=== PATIENT | female | born 1950 | race Caucasian/White ===

== ENCOUNTER 2019-12-27 21:53 | Inpatient (IN) ==
[2019-12-27] MEDS ORDERED: DUONEB (A & A) ONE (21:58)
[2019-12-27] MEDS ORDERED: DUONEB (A & A) INH ONE (22:06)
--- NOTE | 2019-12-27 22:13 | PROVIDER DOCUMENTATION ---
HPI-General Adult - General Chief Complaint: Nausea/Vomiting Stated Complaint: N/V Time Seen by Provider: 12/27/19 22:00 Source: patient Allergies/Adverse Reactions: Patient Allergies Allergy/AdvReac Type Severity Reaction Status Date / Time codeine [Codeine] Allergy Severe NAUSEA/VOMI Verified 05/20/17 12:57 TING meperidine HCl * Allergy Severe NAUSEA/VOMI Verified 05/20/17 12:57 [From Demerol] TING morphine Allergy Severe NAUSEA/VOMI Verified 05/20/17 12:57 TING oxycodone [Oxycodone] Allergy Severe NAUSEA/VOMI Verified 05/20/17 12:57 TING Home Medications: Home Medication List Medication Instructions Recorded Confirmed Last Taken Type Enalapril Maleate 10 mg PO BID 02/04/13 05/21/17 05/20/17 08:00 History Levetiracetam [Keppra] 750 mg PO BID 02/04/13 05/21/17 05/20/17 09:00 History Potassium Chloride [Klor-Con 10] 10 meq PO BID 02/04/13 05/21/17 05/19/17 History ROSUVAstatin [Crestor] 20 mg PO HS 02/04/13 05/21/17 05/19/17 History Atenolol [Tenormin] 25 mg PO DAILY 01/20/14 05/21/17 02/26/15 10:00 History Pantoprazole Sodium [Protonix] 40 mg PO DAILY 01/20/14 05/21/17 05/19/17 History Fluticasone 50 Mcg Nasal [place] 1 spray REGGIE DAILY 05/20/17 05/21/17 Unknown History [Flonase] Magnesium 400 mg PO DAILY 05/20/17 05/21/17 Unknown History Metformin HCl 1,000 mg PO BID 05/20/17 05/21/17 Unknown History Nisoldipine 17 mg PO DAILY 05/20/17 05/21/17 Unknown History Buspirone HCl 7.5 mg PO TID 05/21/17 05/21/17 Unknown History - History of Present Illness -Gen Adult Nature of Presenting Problems: 69 YOF WITH PMH OF SIEZURES, DM, HTN, HLD PRESENTS WITH C/O N/V X 2 DAYS. UPON EMS ARRIVAL IT WAS NOTED THAT HER SATS WERE 82 % ON ROOM AIR. SHE WAS PLACED ON 6 L VIA N/C AND HAS INCREASED TO 94% ON ARRIVAL. SHE ALSO NOTES A COUGH WITH GREEN SPUTUM THAT BEGAN ABOUT 9PM. SHE DENIES FEVERS. REPORTS GENERALIZED BODY ACHES. Location of Pain/Injury: reports: generalized Pain Radiation: reports: no radiation Quality of Pain: reports: aching Severity: reports: moderate Onset/Duration: reports: this afternoon Timing: reports: still present Context/Activities at Onset: reports: none Modifying Factors: improves with: nothing Associated Symptoms: reports: cough, muscle aches, nausea, shortness of breath, vomiting Similar Symptoms Previously?: No Recently seen or treated by another doctor?: No Review of Systems - Adult - REVIEW OF SYSTEMS - ADULT Constitutional: reports: see HPI. denies: no symptoms reported, chills, fever, fatique, night sweats, weight gain, weight loss, other Eyes: reports: no symptoms reported. denies: see HPI, discharge, dry eyes, decreased vision, blurred vision, double vision, eye pain, redness, other Ears, Nose, Mouth & Throat: reports: no symptoms reported. denies: see HPI, ear discharge, ear pain, hearing loss, tinnitus, epistaxis, sinus problem, nose pain, loose teeth, mouth/dental pain, mouth swelling, hoarseness, throat pain, throat swelling, other Cardiovascular: reports: no symptoms reported. denies: see HPI, chest pain, edema, heart murmur, irregular heart rate, orthopnea, palpitations, poor circulation, PND, syncope, other Respiratory: reports: see HPI, cough, shortness of breath. denies: no symptoms reported, chronic cough, dyspnea on exertion, excessive sputum production, hemoptysis, pleurisy, wheezing, other Gastrointestinal: reports: see HPI, nausea, vomiting. denies: no symptoms reported, abdominal pain, hematemesis, constipation, diarrhea, difficulty swallowing, frequent heartburn, poor appetite, rectal bleeding, other Genitourinary: reports: no symptoms reported. denies: see HPI, dysuria, discharge, frequency, flank pain, frequent UTI's, hematuria, hesitency, incontinence, urinary retention, urgency, other Musculoskeletal: reports: no symptoms reported. denies: see HPI, bone pain, back pain, frequent leg cramps, joint pain, joint swelling, muscle aches, muscle weakness, neck pain, other Integumentary: reports: no symptoms reported. denies: see HPI, hives, hair loss, itching, mole changes, nail changes, rash, skin sores/ulcer, skin thickening, other Neurological: reports: no symptoms reported. denies: see HPI, ataxia, diz ziness/vertigo, headache/migraines, loss of balance, numbness, paresthesia, seizure, slurred speech, syncope, tremors, other Psychiatric: reports: no symptoms reported. denies: see HPI, anxiety, anti- depressant use, alcohol/drug dependence, depression, emotional problems, i nsomnia, panic attacks, suicidal thoughts, other Endocrine: reports: no symptoms reported. denies: see HPI, change in skin pigment, excessive sweating, goiter, cold intolerance, heat intolerance, increased hunger, increased thirst, polyuria, other Hematologic/Lymphatic: reports: no symptoms reported. denies: see HPI, blood clots, easy bruising, low blood count, lymphedema, prolonged bleeding, swollen lymph nodes, transfusions, other Allergic/Immunologic: reports: no symptoms reported. denies: see HPI, allergic reactions, allergic rhinitis, asthma, eczema, food allergy, frequent infections, hay fever, hives, positive PPD, urticaria, other Past History - Adult - PAST MEDICAL HISTORY-ADULT Review of Records: reports: Nursing Assessment Review, Social history reviewed & non-contributory. Major Childhood Illnesses: reports: denies history Cardiovascular: reports: CAD, HTN, heart valve problem (MVP), hyperlipidemia, CO Respiratory: reports: asthma Gastrointestinal: reports: GERD Obstetrical/Gynecological: reports: denies history Genitourinary: reports: denies history Musculoskeletal: reports: denies history Neurological: reports: dementia, Seizures/Epilepsy Psychiatric: reports: anxiety, depression Endocrine/Immune: reports: Diabetes Other Conditions: reports: MRSA - PRIOR SURGERIES/PROCEDURES Surgical/Procedure History: reports: cholecystectomy, hysterectomy, tonsillectomy, orthopedic (extremity), joint replacement (total knee) - IMMUNIZATION STATUS Childhood Immunizations: UTD Flu Vaccine: See Nurse Assessment - FAMILY HISTORY Family History: reviewed, not pertinent Physical Exam-General - PHYSICAL EXAM-ADULT Initial Vital Signs Reviewed: Yes - CONSTITUTIONAL General Appearance: alert, moderate distress - EYES Eyes: PERRL/EOMI, pink conjunctivae - HEAD, EARS, NOSE, MOUTH & THROAT HENMT: normal ENT inspection - NECK Neck: non-tender, full range of motion, supple - RESPIRATORY Respiratory: chest non-tender, no pleuratic chest pain, respiratory distress (MILD), crackles - CARDIOVASCULAR Cardiovascular: normal peripheral pulses, no edema, no gallop, no JVD, no murmur . negative: regular rate, rhythm (TACHY 101) - GASTROINTESTINAL (ABDOMEN) Abdominal Exam: normal bowel sounds, non tender, soft - LYMPHATIC Lymphatic: no adenopathy - MUSCULOSKELETAL Back Exam: normal inspection, no CVA tenderness, no vertebral tenderness Extremity: normal range of motion, non-tender Peripheral Pulses: radial (R): 2+, radial (L): 2+ - SKIN Integumentary: normal color, normal turgor, warm/dry - NEUROLOGIC Neurologic: grossly normal - PSYCHIATRIC Psych/Mental Status: normal mood/affect, oriented x 3 Progress - PLAN OF CARE/RESULTS Progress/Plan/Lab Results: Vital Signs - 8 hr 12/27/19 21:53 Temperature 98.9 F Pulse Rate 101 H Respiratory Rate 26 H Blood Pressure 169/100 O2 Sat by Pulse Oximetry 85 L Orders Category Date Time Status Cardiac Monitoring DIRECTED Care 12/27/19 21:56 Active IV Insertion ORDERED Care 12/27/19 21:56 Active Notify MD of + Sepsis Screen NOW Care 12/27/19 21:56 Active Notify Physician As Ordered Care 12/27/19 21:56 Active CHEST-1 VIEW [RAD] Stat Exams 12/27/19 21:56 Ordered ABG [RESP] Routine Lab 12/27/19 21:57 Ordered BLOOD CULTURE [BLDCUL] Stat Lab 12/27/19 21:56 Uncollected CBC WITH DIFF [HEME] Stat Lab 12/27/19 21:56 Uncollected CK PROFILE [SP CHEM] Stat Lab 12/27/19 21:56 Uncollected COMPREHENSIVE METABOLIC PANEL [CHEM] Stat Lab 12/27/19 21:56 Uncollected LACTATE, PLASMA [CHEM] Q3H Lab 12/27/19 22:00 Uncollected LACTATE, PLASMA [CHEM] Q3H Lab 12/28/19 01:00 Uncollected LACTATE, PLASMA [CHEM] Q3H Lab 12/28/19 04:00 Uncollected MAGNESIUM [CHEM] Stat Lab 12/27/19 21:57 Uncollected PRO B-NATRIURETIC PEPTIDE Stat Lab 12/27/19 21:57 Uncollected PROTIME WITH INR [COAG] Stat Lab 12/27/19 21:56 Uncollected PTT [COAG] Stat Lab 12/27/19 21:56 Uncollected SPUTUM CULTURE WITH GRAM STAIN [RM] Stat Lab 12/27/19 22:06 Uncollected TROPONIN T HIGH SENSITIVITY Stat Lab 12/27/19 21:56 Uncollected TYPE & SCREEN [BBK] Stat Lab 12/27/19 21:57 Uncollected URINALYSIS W/POSS RFLX CULT [URINALYSIS] Stat Lab 12/27/19 21:56 Uncollected Albuterol 2.5MG/Ipratrop 0.5MG [Duoneb (A & A)] Med 12/27/19 21:58 Discontinued 3 ml .ROUTE .STK-MED ONE Albuterol 2.5MG/Ipratrop 0.5MG [Duoneb (A & A)] Med 12/27/19 22:06 Discontinued 3 ml INH NOW ONE Aerosol Treatments Routine Oth 12/27/19 22:07 Active Aerosol Treatments Stat Oth 12/27/19 22:07 Active Oxygen Device Stat Oth 12/27/19 21:56 Active EKG [EKG] Stat Ther 12/27/19 21:58 Ordered Result Diagrams: 12/27/19 22:05 12/27/19 22:05 - REASSESSMENT Reassessment #1 Time Reassessed: 22:45 Status: unchanged (SATS ARE MARGINAL DESPITE 50% VENTI MASK- D/W DAUUGHTER AND BIPAP ORDERED) Reassessment #2 Time Reassessed: 00:09 Status: unchanged (SATS IMROVED WITH BIPAP, PT WAS FIGHTING BIPAP-ATIVAN ORDERED FOR RESTLESSNESS) Reassessment #3 Time Reassessed: 00:21 Status: improving (SATS 98% ON BIPAP, NO ACUTE DISTRESS.) - EKG 1 Time of EKG reading by physician:: 22:42 EKG Read and Signed by:: Praful Vaca EKG Interpretation (*Must complete 3 of following elements*): Abnormal Rate: 95 Rhythm: SR WITH PAC [place]: normal QRS: normal MT Interval: normal ST Wave: non-specific ST changes Prior EKG Comparison: changes noted - XRAY 1 XRAY Study: Chest Impression: Abnormal (PNEUMONIA) - CONSULTS/PCP/HOSPITALIST Notification #1 *Consult/PCP/Hospitalist*: DR. VANG Time Discussed: 00:31 Consult Disposition: Admit (TO ICU) Departure - Departure Date of Disposition Decision: 12/28/19 Time of Disposition Decision: 00:31 DIAGNOSIS: Pneumonia, Acute respiratory failure with hypoxia, Elevated d-dimer Disposition: ADMITTED INPATIENT 09 Certified Medical Emergency: Emergent Condition: Stable Referrals and Follow-Ups: Brady Felder [Primary Care Provider] - - Critical Care Note This patient required my direct & personal management of CC.: Yes Total Time (mins): 32 Critical Care Statement: This patient required my direct personal management to treat or rule out processes, the absence of which, could potentiallly result in sudden, clinically significant life or limb threatening deterioration. Attestation - Physician/ MYAH Attestation Patient care was provided by Advanced Practice Provider:: Yes Advanced Practice Provider:: Ana Lilia Zaragoza Advanced Practice Provider documentation review:: The Mid-level provider documentation, treatment plan and medical decision making was reviewed by the physician who agrees with all treatment and medical decision making by the MLP. The physician spent face to face time with patient:: No Advanced Practice Provider documentation review:: Supervising physician onsite and consulted in the evaluation and care of this patient. The physician did not have a face to face encounter with the patient.
[2019-12-27 22:22] LABS: BE 13.4 mmoll (-3.0-3.0); BLOOD TYPE ARTERIAL; HCO3-(ACT) 35.3 mmoll (20.0-26.0); METHB 1.5 % (0.0-1.5); O2(CT) 15.5 mL/dL (15.0-23.0); O2HB 94.4 % (95.0-99.0); PCO2(98.6) 45 mmHg (35-45); PO2(98.6) 90 mmHg (60-100); SAMPLE BLOOD; SAO2 98.4 % (95.0-100.0); THB 11.6 g/dL (11.5-17.4); pH(98.6) 7.53 (7.35-7.45)
[2019-12-27 22:25] LABS: ALLEN TEST YES; MODALITY VENTIMASK
[2019-12-27] MEDS ORDERED: SOLU-MEDROL IV ONE (22:41)
[2019-12-27] MEDS ORDERED: ZOSYN 3.375 GM in NS 50 ML IV ONE (22:41)
[2019-12-27] MEDS ORDERED: VANCOMYCIN 1 GM/NS 1 GM/250 ML IVPB IV ONE (22:41)
[2019-12-27 22:48] LABS: ESTIMATED GFR > 60
[2019-12-27 22:50] LABS: AGAP 17; ALBUMIN 3.3 g/dL (3.5-5.0); ALKALINE PHOSPHATASE 120 U/L (32-104); BUN 9 mg/dL (8-22); CALCIUM 8.9 mg/dL (8.8-10.2); CHLORIDE 86 mmol/L (98-107); CK PROFILE 434 U/L (24-173); COSMO 270; CREATININE 0.6 mg/dL (0.5-0.9); GLUCOSE 155 mg/dL (70-104); GOT 31 U/L (10-30); GPT 17 U/L (10-36); MAGNESIUM 1.5 mg/dL (1.5-2.7); POTASSIUM 3.4 mmol/L (3.5-5.1); SODIUM 134 mmol/L (136-145); TCO2 31 mmol/L (25-35)
[2019-12-27 22:56] LABS: INR 1.31
[2019-12-27 22:57] LABS: BASO# 0.06 X1000 (0.0-0.2); BASO% 0.3 % (0.0-0.8); EOS# 0.13 X1000 (0.0-0.7); EOS% 0.6 % (0.0-10.0); HEMATOCRIT 34.6 % (37.0-47.0); HEMOGLOBIN 11.3 g/dL (12.0-16.0); IMM GRAN# 0.29 X1000 (0.0-0.04); IMM GRAN% 1.3 % (0.0-0.5); LYMPH# 1.96 X1000 (1.2-3.4); LYMPH% 9.1 % (20.5-51.1); MCHC 32.7 g/dL (33-37); MCV 85.9 FL (81-99); MONO# 1.43 X1000 (0.11-0.59); MONO% 6.6 % (1.7-9.3); MPV 9.5 FL (7.4-10.4); NEUT# 17.72 X1000 (1.4-6.5); NEUT% 82.1 % (42.2-75.2); PLT 278 X1000 (130-400); PTT 42.6 Seconds (22.3-41.8); RBC 4.03 XMIL (4.2-5.4); RDW 12.5 % (11.5-14.5); WBC 21.59 X1000 (4.8-10.8)
[2019-12-27] MEDS ORDERED: NS 500 ML IV ONE (23:06)
[2019-12-27] MEDS ORDERED: NS 1,000 ML IV ONE ×3 (23:06)
[2019-12-27 23:12] LABS: BANDS 1 % (0-1); LYMPHS 10 % (21-51); MONO 5 % (1-9); POLYCHROM OCCASIONAL; SEGS 84 % (42-75)
[2019-12-27 23:13] LABS: POIKILOCYTOSIS OCCASIONAL; STOMATOCYTES OCCASIONAL
[2019-12-27 23:14] LABS: CK INDEX 1.6 (0.0-2.5); CK-MB 6.81 ng/mL (0.0-5.0)
[2019-12-27 23:24] LABS: URINE SOURCE CATH
[2019-12-27 23:28] LABS: BILIRUBIN URINE NEGATIVE (NEGATIVE); BLOOD URINE SMALL (NEGATIVE); COLOR YELLOW; GLUCOSE URINE NEGATIVE (NEGATIVE); KETONE URINE 20 mg/dL (NEGATIVE); LEUKOCYTES URINE NEGATIVE (NEGATIVE); NITRITE URINE NEGATIVE (NEGATIVE); PROTEIN URINE 200 mg/dL (NEGATIVE); SP GRAVITY URINE 1.017; TURBIDITY URINE CLEAR (CLEAR); UR EPITHELIAL CELLS <10 /HPF (<10); URINE BACTERIA NEGATIVE /HPF; URINE RBC <10 /HPF (<10); URINE WBC <10 /HPF (<10); UROBILINOGEN URINE 3 mg/dL (NORMAL)
[2019-12-27] MEDS ORDERED: LOVENOX 1 MG/KG SUBQ ONE (23:48)
[2019-12-27] MEDS ORDERED: ATIVAN IV ONE (23:50)
[2019-12-28] MEDS ORDERED: LOVENOX ONE (00:18)
[2019-12-28 00:22] LABS: INFLUENZA A NEGATIVE (NEGATIVE); INFLUENZA B NEGATIVE (NEGATIVE)
[2019-12-28] MEDS ORDERED: NS 1,000 ML IV ONE (00:34)
[2019-12-28] MEDS ORDERED: ZOFRAN IV PRN (05:13)
[2019-12-28] MEDS ORDERED: TYLENOL PO PRN (05:13)
[2019-12-28] MEDS ORDERED: VANCOMYCIN IV PER PHARMACY MISC SCH (05:15)
--- NOTE | 2019-12-28 05:19 | EKG Report ---
Test Performed on : 12/27/2019 10:42:55 PM Test Reason : SOB Blood Pressure : / mmHG Vent. Rate : 095 BPM Atrial Rate : 095 BPM P-R Int : 132 ms QRS Dur : 078 ms QT Int : 356 ms P-R-T Axes : 079 050 045 degrees QTc Int : 447 ms Sinus rhythm. with premature atrial complexes. Nonspecific ST abnormality Abnormal ECG When compared with ECG of 20-MAY-2017 14:22, premature atrial complexes. are now present Nonspecific T wave abnormality, improved in Inferior leads T wave inversion no longer evident in Anterolateral leads Unconfirmed Result
--- NOTE | 2019-12-28 05:48 | Diag Imaging Result Doc PS360 ---
EXAM: CT THORAX/ABD/PELVIS W/CON HISTORY: SOB, HYPOXIA, WBC 21, N/V TECHNIQUE: 1. CT chest with intravenous contrast 2. CT abdomen and pelvis with intravenous contrast COMPARISON: Abdomen compared to 05/04/2015 FINDINGS: Chest: There is a small right pleural effusion measuring 2.0 cm posteriorly and inferiorly in the midline. No left pleural effusion. No cardiomegaly. No aortic aneurysm or dissection. Multifocal infiltrates throughout the right lung and base. The largest area measures 2.7 cm bilaterally in the right lower lobe. Moderate atherosclerosis. ABDOMEN: There is fatty infiltration of the liver. The gallbladder has been removed. Normal pancreas and adrenal glands. There is scarring to the kidneys. No hydronephrosis. Prominent atherosclerosis. No aortic aneurysm. No bowel obstruction. No inflammation about the cecum. No abscess. There is a Underwood catheter within the urinary bladder. The uterus has been removed. No pelvic mass. There are scattered pelvic phleboliths. Scoliosis with degenerative spine changes and subluxation of L5 on S1. There is at least moderate spinal stenosis at this level. IMPRESSION: Chest: 1. Multifocal nodular infiltrates 2. Small right pleural effusion 3. Mildly prominent mediastinal nodes Abdomen and pelvis: 1. Fatty infiltration of liver 2. Cholecystectomy 3. Renal scarring 4. Prominent atherosclerosis 5. Hysterectomy A preliminary report was given at 12:12 AM This exam was performed using automated exposure control, adjustment of mA or kV according to patient size, and/or use of iterative reconstruction technique. Electronically signed by Magno Prater 12/28/2019 5:46 AM
--- NOTE | 2019-12-28 06:13 | HISTORY AND PHYSICAL ---
PRIMARY CARE PHYSICIAN: Unknown. CHIEF COMPLAINT: Shortness of breath, not feeling well. HISTORY OF PRESENTING ILLNESS: A 69-year-old female with a history of hypertension, seizures, diabetes mellitus type 2, and hyperlipidemia, who initially went to [facility] [place] with complaints of shortness of breath and difficulty breathing. The patient was evaluated there. She had imaging done which did show pneumonia. She was in respiratory distress. She was put on BiPAP and due to lack of ICU beds there, she was transferred to [facility] for further management. At the time of my examination, she had denied any headache, fever, chills, chest pain, or any weight changes, but complained of shortness of breath. The patient is a poor historian. PAST MEDICAL HISTORY: Includes hypertension, seizure disorder, diabetes mellitus type 2, and hyperlipidemia. PAST SURGICAL HISTORY: Includes shoulder surgery, bilateral knee surgery and hysterectomy. ALLERGIES: Codeine, meperidine, morphine, and oxycodone. CURRENT MEDICATIONS: 1. Atenolol 25 mg p.o. daily. 2. BuSpar 15 mg p.o. daily. 3. Enalapril 2.5 mg p.o. daily. 4. Keppra 250 mg p.o. b.i.d. 5. Metformin 500 mg p.o. b.i.d. 6. Pantoprazole 40 mg p.o. daily. 7. Rosuvastatin 20 mg p.o. daily. SOCIAL HISTORY: She denies any history of smoking, alcohol or illicit drug use. FAMILY HISTORY: No history of coronary disease. REVIEW OF SYSTEMS: Fourteen point review of systems is listed as in HPI. Other systems negative. PHYSICAL EXAMINATION: GENERAL: Cooperative, friendly female. She is resting more comfortably now. She still on a BiPAP however. VITAL SIGNS: Temperature 98.2 degrees, pulse 87, respirations 17, and blood pressure 138/69. HEENT: Atraumatic, normocephalic. Extraocular movements intact. PERRLA. NECK: No masses. CHEST: Rhonchi. CARDIOVASCULAR: Regular rate and rhythm. ABDOMEN: Soft. Positive bowel sounds. EXTREMITIES: No edema. NEUROLOGIC: She is awake, alert and oriented x2. : No bladder distention. SKIN: Warm. LABORATORIES AND STUDIES: Sodium 134, potassium 3.4, chloride 86, CO2 is 31, BUN is 9, creatinine 0.6, and glucose 155. WBC 21.59, hemoglobin 11.3, hematocrit 34.6, and platelets 278,000. Urine is nitrite negative. ASSESSMENT: This is a 69-year-old female with a history of hypertension, seizure disorder, diabetes mellitus type 2, who had initially presented to [facility] [place] with shortness of breath and cough. She was evaluated there, and she was found to be in respiratory failure. She was put on BiPAP and she was transferred to [facility] for further evaluation and management. ASSESSMENT: 1. Acute respiratory failure. 2. Pneumonia. 3. Hypertension. 4. Diabetes mellitus type 2. PLAN: 1. We will admit patient to ICU. 2. Continue patient on BiPAP and see if we can titrate to supplemental oxygen. 3. We will check blood cultures. Start patient on IV antibiotics. 4. Monitor blood pressure. Resume antihypertensive agent. 5. We will monitor blood glucose and put patient on sliding scale insulin regimen. 6. We will put patient on DVT prophylaxis with SCD's. 7. We will continue to follow and reassess, and make further recommendation based on patient's clinical course. cc: Jose Luis Kwan MD MTDD
[2019-12-28] MEDS: ZOSYN 3.375 GM in NS 50 ML IV SCH ×4 (06:35→22:18)
[2019-12-28] MEDS ORDERED: VANCOMYCIN 1 GM/NS 1 GM/250 ML IVPB IV ONE (07:00)
[2019-12-28] MEDS: HUMULIN R SUBQ SCH ×4 (07:14→20:50)
--- NOTE | 2019-12-28 07:23 | Diag Imaging Result Doc PS360 ---
EXAM: CHEST-1 VIEW HISTORY: COUGH, HYPOXIA TECHNIQUE: Single view COMPARISON: 05/20/2017 FINDINGS: The lungs are well expanded. There are multifocal bilateral nodular infiltrates, these are most pronounced in the right. No cardiomegaly. No pleural effusions identified. There are old rib fractures. IMPRESSION: Multifocal nodular infiltrates Electronically signed by Magno Prater 12/28/2019 7:21 AM
[2019-12-28] MEDS: HALDOL IV PRN (08:26)
[2019-12-28] MEDS: ATIVAN IV PRN ×3 (09:14→22:18)
[2019-12-28] MEDS ORDERED: PHENOBARBITAL IV ONE (10:30)
[2019-12-28 11:17] LABS: AGAP 17; ALBUMIN 2.9 g/dL (3.5-5.0); BUN 10 mg/dL (8-22); CALCIUM 8.4 mg/dL (8.8-10.2); CHLORIDE 90 mmol/L (98-107); COSMO 273; CREATININE 0.6 mg/dL (0.5-0.9); GLUCOSE 210 mg/dL (70-104); PHOSPHORUS 3.4 mg/dL (2.7-4.5); POTASSIUM 4.6 mmol/L (3.5-5.1); SODIUM 134 mmol/L (136-145); TCO2 27 mmol/L (25-35)
[2019-12-28 11:33] LABS: BASO# 0.04 X1000 (0.0-0.2); BASO% 0.2 % (0.0-0.8); EOS# 0.12 X1000 (0.0-0.7); EOS% 0.6 % (0.0-10.0); HEMATOCRIT 32.9 % (37.0-47.0); HEMOGLOBIN 10.4 g/dL (12.0-16.0); IMM GRAN# 0.34 X1000 (0.0-0.04); IMM GRAN% 1.7 % (0.0-0.5); LYMPH# 1.02 X1000 (1.2-3.4); LYMPH% 5.2 % (20.5-51.1); MCH 27.2 PG (27-31); MCHC 31.6 g/dL (33-37); MCV 86.1 FL (81-99); MONO# 0.29 X1000 (0.11-0.59); MONO% 1.5 % (1.7-9.3); MPV 10.1 FL (7.4-10.4); NEUT# 17.67 X1000 (1.4-6.5); NEUT% 90.8 % (42.2-75.2); PLT 228 X1000 (130-400); RBC 3.82 XMIL (4.2-5.4); RDW 12.6 % (11.5-14.5); WBC 19.48 X1000 (4.8-10.8)
[2019-12-28 12:20] LABS: BANDS 2 % (0-1); LYMPHS 6 % (21-51); MONO 2 % (1-9); SEGS 90 % (42-75)
[2019-12-28] MEDS: DUONEB (A & A) INH PRN ×4 (12:20→23:02)
[2019-12-28] MEDS: NORCO-7.5 PO PRN (16:32)
[2019-12-28] MEDS: VANCOMYCIN 1,800 MG in NS 250 ML IV SCH (22:58)
[2019-12-29] MEDS: ZOSYN 3.375 GM in NS 50 ML IV SCH ×4 (05:19→22:46)
[2019-12-29 05:46] LABS: BASO# 0.04 X1000 (0.0-0.2); BASO% 0.2 % (0.0-0.8); HEMATOCRIT 29.7 % (37.0-47.0); HEMOGLOBIN 9.4 g/dL (12.0-16.0); IMM GRAN# 0.34 X1000 (0.0-0.04); LYMPH# 1.37 X1000 (1.2-3.4); MCH 27.4 PG (27-31); MCHC 31.6 g/dL (33-37); MCV 86.6 FL (81-99); MONO# 0.88 X1000 (0.11-0.59); MONO% 5.1 % (1.7-9.3); MPV 9.5 FL (7.4-10.4); NEUT# 14.56 X1000 (1.4-6.5); NEUT% 84.7 % (42.2-75.2); PLT 246 X1000 (130-400); RBC 3.43 XMIL (4.2-5.4); RDW 12.6 % (11.5-14.5); WBC 17.19 X1000 (4.8-10.8)
[2019-12-29 06:11] LABS: AGAP 9; ALBUMIN 2.5 g/dL (3.5-5.0); BUN 13 mg/dL (8-22); CALCIUM 8.7 mg/dL (8.8-10.2); CHLORIDE 93 mmol/L (98-107); COSMO 274; CREATININE 0.5 mg/dL (0.5-0.9); ESTIMATED GFR > 60; GLUCOSE 208 mg/dL (70-104); PHOSPHORUS 3.1 mg/dL (2.7-4.5); POTASSIUM 3.6 mmol/L (3.5-5.1); SODIUM 134 mmol/L (136-145); TCO2 32 mmol/L (25-35)
[2019-12-29] MEDS: HUMULIN R SUBQ SCH ×4 (06:34→20:19)
--- NOTE | 2019-12-29 06:56 | PROGRESS NOTE ---
DATE: 12/29/2019 SUBJECTIVE: Apparently, according to nursing staff, the patient has been resting okay. Sometimes has a little bit of agitation, but overall she is doing okay. OBJECTIVE: Vital Signs: Temperature 98.5 degrees, heart rate 84, respiratory rate 16, blood pressure 144/79, O2 saturation 95% on Ventimask. General: This is a 69-year-old, critically ill- appearing, female, lying in bed in no acute distress. Cardiovascular: S1, S2 heard. No murmurs, gallops, or rubs. Regular rate and rhythm. Respiratory: Coarse breath sounds and wheezing noted in both pulmonary hussein. The patient is not using any accessory muscles or having work of breathing. Abdomen: Soft. Nontender to palpation. Bowel sounds present. No organomegaly. Extremities: No clubbing, cyanosis, or edema. Peripheral pulses noted in both legs. Neurological: The patient is sleepy upon my exam. Does follow basic commands. Moves all 4 extremities. LABORATORY DATA: White cell count 17.19, hemoglobin 9.4, hematocrit 29.7, platelets 246,000. BMP reveals sodium 134. Rest of the BMP is pretty much normal. ASSESSMENT AND PLAN: 1. Acute respiratory failure secondary to pneumonia. Will continue with intravenous antibiotics, breathing treatments, and oxygen supplementation. Will continue to monitor. 2. Hypertension. Blood pressure is under control. Will continue with the same management. 3. Diabetes mellitus type 2. Will continue with sliding scale insulin and Accu-Chek before meals and also at bedtime. 4. History of psychiatric issues. The patient, I think, is doing much better. I think we will try to send her to PVC unit today. cc: Alban Benedict MD
[2019-12-29] MEDS: DUONEB (A & A) INH PRN ×3 (08:16→23:09)
[2019-12-29] MEDS: NORCO-7.5 PO PRN ×2 (08:56→17:14)
[2019-12-29] MEDS: PHENOBARBITAL IV PRN ×2 (10:44→17:24)
[2019-12-29] MEDS: ATIVAN IV PRN ×2 (15:53→20:48)
[2019-12-29] MEDS: HALDOL IV PRN (22:20)
[2019-12-30] MEDS: VANCOMYCIN 1,800 MG in NS 250 ML IV SCH ×2
[2019-12-30] MEDS: NORCO-7.5 PO PRN ×3 (00:36→16:40)
[2019-12-30] MEDS: DUONEB (A & A) INH PRN ×6 (03:26→23:39)
[2019-12-30] MEDS: ZOSYN 3.375 GM in NS 50 ML IV SCH ×4 (04:44→23:28)
[2019-12-30 06:04] LABS: BASO# 0.03 X1000 (0.0-0.2); BASO% 0.2 % (0.0-0.8); EOS# 0.08 X1000 (0.0-0.7); EOS% 0.6 % (0.0-10.0); HEMATOCRIT 32.8 % (37.0-47.0); HEMOGLOBIN 10.3 g/dL (12.0-16.0); IMM GRAN% 1.4 % (0.0-0.5); LYMPH# 1.63 X1000 (1.2-3.4); LYMPH% 11.5 % (20.5-51.1); MCH 27.3 PG (27-31); MCHC 31.4 g/dL (33-37); MONO# 0.99 X1000 (0.11-0.59); MPV 9.6 FL (7.4-10.4); NEUT# 11.22 X1000 (1.4-6.5); NEUT% 79.3 % (42.2-75.2); PLT 246 X1000 (130-400); RBC 3.77 XMIL (4.2-5.4); RDW 12.7 % (11.5-14.5); WBC 14.15 X1000 (4.8-10.8)
[2019-12-30 06:22] LABS: AGAP 12; ALBUMIN 2.7 g/dL (3.5-5.0); BUN 8 mg/dL (8-22); CALCIUM 8.5 mg/dL (8.8-10.2); CHLORIDE 94 mmol/L (98-107); COSMO 280; CREATININE 0.5 mg/dL (0.5-0.9); ESTIMATED GFR > 60; GLUCOSE 164 mg/dL (70-104); POTASSIUM 3.3 mmol/L (3.5-5.1); SODIUM 139 mmol/L (136-145); TCO2 33 mmol/L (25-35)
[2019-12-30] MEDS: HUMULIN R SUBQ SCH ×4 (06:37→22:09)
[2019-12-30] MEDS ORDERED: KLOR-CON PO ONE (06:43)
[2019-12-30 07:30] LABS: LYMPHS 12 % (21-51); MONO 9 % (1-9); SEGS 79 % (42-75)
--- NOTE | 2019-12-30 07:41 | PROGRESS NOTE ---
DATE: 12/30/2019 SUBJECTIVE: Patient is a little bit more awake today. According to nursing staff, she has been agitated overnight. She is requiring oxygen by Venturi mask. Once she removed the mask, her oxygen saturation drops to the low 80s. At this point upon my examination, she is able to answer my questions and follow commands. OBJECTIVE: Vital Signs: Temperature 98.5 degrees, heart rate 88, respiratory 14, blood pressure 145/70, O2 saturation 92% on Venturi mask. General Examination: This is a 69-year-old female lying in bed in no acute distress. Cardiovascular exam: S1, S2 heard. No murmurs, gallops, or rubs. Regular rate and rhythm. Respiratory exam: Coarse breath sound noted in both pulmonary hussein, as well as minimal wheezing. Patient not using any accessory muscles or having work of breathing. Abdomen: Soft, nontender to palpation. Bowel sounds present. No organomegaly. Extremities: No clubbing, cyanosis, or edema. Peripheral pulses present in both legs. Neurological exam: Patient is alert. Sometimes she is slow. Moves 4 extremities. Answered basic questions. LABORATORY DATA: White cell count 14.15, hemoglobin 10.3, hematocrit 32.8, platelets 246. BMP is basically unremarkable, except potassium 3.3. ASSESSMENT AND PLAN: 1. Acute respiratory failure secondary to pneumonia. Clinically, this patient is doing fine, is more oriented, and sometimes she has periods of confusion. Currently, she is receiving vancomycin and Zosyn. Patient is also on breathing treatments using Ativan. 2. Hypertension. Blood pressure is under control. We will continue with the same management. 3. Diabetes mellitus type 2. We will continue with sliding scale insulin. Accu-Cheks before meals and also at bedtime. 4. History of psychiatric issues. Patient is doing fine. Unfortunately every time she got confused, she removed the non-rebreather mask and her oxygen saturation drops to low 80s. At this point, I prefer to keep this patient here while we get a bed in progressive care unit. cc: Alban Benedict MD
[2019-12-30] MEDS: ATIVAN IV PRN ×2 (10:09→17:42)
[2019-12-30] MEDS: TENORMIN PO SCH (15:05)
[2019-12-30] MEDS: SULAR PO SCH (16:16)
[2019-12-31] MEDS: NORCO-7.5 PO PRN ×3 (00:03→20:54)
[2019-12-31] MEDS: DUONEB (A & A) INH PRN ×6 (03:09→23:15)
[2019-12-31 05:58] LABS: ALLEN TEST YES; BE 7.5 mmoll (-3.0-3.0); BLOOD TYPE ARTERIAL; HCO3-(ACT) 30.7 mmoll (20.0-26.0); PCO2(98.6) 47 mmHg (35-45); PO2(98.6) 70 mmHg (60-100); SAMPLE BLOOD; SRATE 10 BPM; pH(98.6) 7.45 (7.35-7.45)
[2019-12-31 06:01] LABS: MODALITY BI PAP
[2019-12-31 07:06] LABS: BASO# 0.03 X1000 (0.0-0.2); BASO% 0.2 % (0.0-0.8); EOS# 0.21 X1000 (0.0-0.7); EOS% 1.6 % (0.0-10.0); HEMATOCRIT 33.9 % (37.0-47.0); HEMOGLOBIN 10.6 g/dL (12.0-16.0); IMM GRAN# 0.34 X1000 (0.0-0.04); IMM GRAN% 2.6 % (0.0-0.5); LYMPH# 1.75 X1000 (1.2-3.4); LYMPH% 13.1 % (20.5-51.1); MCH 26.9 PG (27-31); MCHC 31.3 g/dL (33-37); MONO# 0.74 X1000 (0.11-0.59); MONO% 5.6 % (1.7-9.3); MPV 9.6 FL (7.4-10.4); NEUT# 10.24 X1000 (1.4-6.5); NEUT% 76.9 % (42.2-75.2); PLT 261 X1000 (130-400); RBC 3.94 XMIL (4.2-5.4); RDW 12.8 % (11.5-14.5); WBC 13.31 X1000 (4.8-10.8)
[2019-12-31 07:36] LABS: AGAP 14; ALBUMIN 2.7 g/dL (3.5-5.0); BUN 9 mg/dL (8-22); CALCIUM 8.8 mg/dL (8.8-10.2); CHLORIDE 91 mmol/L (98-107); COSMO 271; CREATININE 0.6 mg/dL (0.5-0.9); ESTIMATED GFR > 60; GLUCOSE 137 mg/dL (70-104); PHOSPHORUS 4.2 mg/dL (2.7-4.5); POTASSIUM 3.6 mmol/L (3.5-5.1); SODIUM 135 mmol/L (136-145); TCO2 30 mmol/L (25-35)
--- NOTE | 2019-12-31 08:12 | PROGRESS NOTE ---
DATE: 12/31/2019 SUBJECTIVE: The patient has been confused last night, requiring at some point to use restraints. Nurse reported she is doing okay. When she is confused, she removes Ventimask and her oxygen drops. No other issues. OBJECTIVE: Vital Signs: Temperature 99 degrees, heart rate 76, respiratory rate 20, blood pressure 141/72, O2 saturation 94%. General Examination: This is a chronically ill-looking, 69- year-old female lying in bed, in no acute distress. Cardiovascular: S1, S2 heard. No murmurs, gallops, or rubs. Regular rate and rhythm. Respiratory: Coarse breath sounds and minimal wheezing noted in both pulmonary bases. Patient is not using any accessory muscles or having work of breathing. Abdomen: Soft, nontender to palpation. Bowel sounds present. No organomegaly. Extremities: No clubbing, cyanosis or edema. Peripheral pulses present in both legs. Neurological: The patient alert and oriented in person only. Patient is slow. Moves 4 extremities. LABORATORY DATA: Pending at the time of my dictation. ASSESSMENT AND PLAN: 1. Acute respiratory failure secondary to pneumonia. We will continue with vancomycin and Zosyn. We will continue with antibiotics, in this case vancomycin and Zosyn. The patient is receiving DuoNeb. We will continue to monitor. 2. Hypertension. Blood pressure is under control. We will continue with same medications 3. Diabetes mellitus type 2. We will continue with sliding scale insulin. Accu-Chek before meals and also at bedtime. 4. History of psychiatric issues. We do not know if this patient has schizophrenia. I have not seen any documentation regarding that, so as far as history of psychiatric issues, the patient is doing fine in the day time, but at nighttime, she was confused and removed her IV access. cc: Alban Benedict MD MTDD
[2019-12-31] MEDS: SULAR PO SCH (08:22)
[2019-12-31] MEDS: ATIVAN IV PRN (08:22)
[2019-12-31] MEDS: TENORMIN PO SCH (08:22)
[2019-12-31] MEDS: HUMULIN R SUBQ SCH ×5 (11:18→21:11)
[2019-12-31] MEDS: ZOSYN 3.375 GM in NS 50 ML IV SCH ×3 (11:18→17:10)
[2019-12-31] MEDS: VANCOMYCIN 1,200 MG in NS 250 ML IV SCH ×2 (13:06→16:35)
[2019-12-31] MEDS: PHENOBARBITAL IV PRN (22:46)
[2020-01-01] MEDS: ZOSYN 3.375 GM in NS 50 ML IV SCH ×5 (00:17→23:16)
[2020-01-01] MEDS: VANCOMYCIN 1,200 MG in NS 250 ML IV SCH ×2 (00:55→13:54)
[2020-01-01] MEDS: NORCO-7.5 PO PRN ×2 (02:24→18:00)
[2020-01-01 05:21] LABS: ALLEN TEST YES; BE 4.9 mmoll (-3.0-3.0); BLOOD TYPE ARTERIAL; HCO3-(ACT) 28.6 mmoll (20.0-26.0); PO2(98.6) 70 mmHg (60-100); SAMPLE BLOOD; pH(98.6) 7.38 (7.35-7.45)
[2020-01-01 05:46] LABS: MODALITY CANNULA; PCO2(98.6) 53 mmHg (35-45)
[2020-01-01 06:16] LABS: BASO# 0.05 X1000 (0.0-0.2); BASO% 0.4 % (0.0-0.8); EOS# 0.31 X1000 (0.0-0.7); EOS% 2.3 % (0.0-10.0); HEMATOCRIT 36.6 % (37.0-47.0); HEMOGLOBIN 11.9 g/dL (12.0-16.0); IMM GRAN# 0.47 X1000 (0.0-0.04); IMM GRAN% 3.5 % (0.0-0.5); LYMPH# 1.58 X1000 (1.2-3.4); LYMPH% 11.7 % (20.5-51.1); MCH 27.8 PG (27-31); MCHC 32.5 g/dL (33-37); MCV 85.5 FL (81-99); MONO# 1.11 X1000 (0.11-0.59); MONO% 8.2 % (1.7-9.3); MPV 9.6 FL (7.4-10.4); NEUT# 10.01 X1000 (1.4-6.5); NEUT% 73.9 % (42.2-75.2); PLT 335 X1000 (130-400); RBC 4.28 XMIL (4.2-5.4); RDW 12.9 % (11.5-14.5); WBC 13.53 X1000 (4.8-10.8)
[2020-01-01] MEDS: HUMULIN R SUBQ SCH ×4 (06:41→20:21)
[2020-01-01 07:03] LABS: ALBUMIN 3.1 g/dL (3.5-5.0); CALCIUM 8.8 mg/dL (8.8-10.2); CREATININE 1.5 mg/dL (0.5-0.9); PHOSPHORUS 4.7 mg/dL (2.7-4.5); POTASSIUM 3.7 mmol/L (3.5-5.1)
[2020-01-01] MEDS: TENORMIN PO SCH (08:00)
[2020-01-01] MEDS: SULAR PO SCH (08:00)
[2020-01-01] MEDS: HALDOL IV PRN (10:49)
[2020-01-01] MEDS: BIDEX PO SCH (17:13)
--- NOTE | 2020-01-01 18:12 | PROGRESS NOTE ---
DATE: 01/01/2020 INTERVAL HISTORY: No acute events overnight. She was saturating 88% on 3 to 4 L nasal cannula. She has decreasing leukocytosis. She has had episodes of agitation requiring medication. Currently, she is lying in the bed, does not appear in any acute distress. She answers most questions appropriately. She states her last seizure was several years ago, and she takes Keppra for that. She denies having been diagnosed with any psychiatric illness. She wanted me to take her urine catheter out. I discussed about worsening kidney function and monitoring urine output for one more day. She understood it. OBJECTIVE: Vital Signs: Temperature 98.3 degrees, pulse 76, respiratory 20, and blood pressure 150/100. She is saturating 93% on 3 L nasal cannula. General: She is not in acute distress. HEENT: Oral cavity is moist. Lungs: Air entry bilaterally equal. No wheeze or rhonchi. She has inspiratory crackles in bilateral infrascapular region. Cardiovascular: S1, S2 normal. No murmur or gallop. Abdomen: Soft and nontender. Extremities: She does not have lower extremity edema. Pelvic: She has urine catheter. Neurologic: She is alert. She is answering most questions appropriately. LABORATORY: Labs suggestive of decreasing leukocytosis to 13,000, hemoglobin 10.9, and platelet 335,000. She does have hypercarbia with pCO2 of 53, BUN of 15, and creatinine 1.5. Random vancomycin level has been ordered for tomorrow. No positive microbiological data. Repeat sputum culture has been ordered. ASSESSMENT AND PLAN: 1. Acute hypoxic respiratory failure due to bilateral multifocal pneumonia. Continue intravenous Zosyn. Follow up repeat sputum cultures. Continue inhaled bronchodilators. I will continue oxygenation through nasal cannula. I will add guaifenesin. 2. Acute kidney injury. This could be related to use of intravenous vancomycin. I will stop intravenous vancomycin. Follow up with random vancomycin level tomorrow. Continue Underwood catheter for now for close input and output monitoring, which is draining appropriately. 3. History of psychotic mood disorder and seizures according to discharge summary in 2017. The patient was supposed to be on Keppra, buspirone, olanzapine, and divalproex. However, not entirely sure whether she was taking these medications. I will keep her on Keppra. We will give her intravenous haloperidol as needed. She would need outpatient psychiatric evaluation. 4. Others: Continue atenolol and nisoldipine for essential hypertension; [place] for chronic pain and sliding scale insulin for noninsulin-dependent diabetes mellitus. DISPOSITION: I will continue to monitor patient inside PVC unit as she still needs a good amount of oxygen. Plan of care discussed with the patient. Her questions have been answered. I will order physical therapy. cc: Rashel Keane MD
[2020-01-01] MEDS: KEPPRA PO SCH (20:16)
[2020-01-02] MEDS: HALDOL IV PRN (00:07)
[2020-01-02] MEDS: ZOSYN 3.375 GM in NS 50 ML IV SCH (05:16)
[2020-01-02 06:20] LABS: BASO# 0.04 X1000 (0.0-0.2); BASO% 0.4 % (0.0-0.8); EOS# 0.28 X1000 (0.0-0.7); EOS% 2.8 % (0.0-10.0); HEMATOCRIT 32.8 % (37.0-47.0); HEMOGLOBIN 10.3 g/dL (12.0-16.0); IMM GRAN# 0.17 X1000 (0.0-0.04); IMM GRAN% 1.7 % (0.0-0.5); LYMPH# 1.03 X1000 (1.2-3.4); LYMPH% 10.3 % (20.5-51.1); MCH 27.3 PG (27-31); MCHC 31.4 g/dL (33-37); MPV 9.4 FL (7.4-10.4); NEUT# 7.54 X1000 (1.4-6.5); NEUT% 75.8 % (42.2-75.2); PLT 288 X1000 (130-400); RBC 3.77 XMIL (4.2-5.4); RDW 12.8 % (11.5-14.5); WBC 9.96 X1000 (4.8-10.8)
[2020-01-02] MEDS: HUMULIN R SUBQ SCH ×4 (06:33→20:39)
[2020-01-02 06:50] LABS: ALBUMIN 2.4 g/dL (3.5-5.0); CALCIUM 8.5 mg/dL (8.8-10.2); PHOSPHORUS 4.6 mg/dL (2.7-4.5); POTASSIUM 3.8 mmol/L (3.5-5.1)
--- NOTE | 2020-01-02 09:05 | Diag Imaging Result Doc PS360 ---
EXAM: CHEST-2 VIEWS INDICATION: hypoxia TECHNIQUE: 2 views COMPARISON: 12/27/2019 FINDINGS: Multifocal somewhat nodular infiltrates throughout the right lung and at the left lower lung zone are again identified. There has been some improvement at the right upper lung zone but there is increased opacity at the left lower lung zone that may represent superimposed atelectasis. No other new consolidation is identified. Cardiac silhouette is stable. IMPRESSION: Mixed changes as described. Electronically signed by Augustus Jones 01/02/2020 9:03 AM
[2020-01-02] MEDS: SULAR PO SCH (09:14)
[2020-01-02] MEDS: KEPPRA PO SCH ×2 (09:15→20:36)
[2020-01-02] MEDS: TENORMIN PO SCH (09:15)
[2020-01-02] MEDS: BIDEX PO SCH ×3 (09:15→16:06)
[2020-01-02] MEDS ORDERED: LR 1,000 ML IV SCH (10:00)
[2020-01-02] MEDS: ZITHROMAX PO SCH (10:16)
[2020-01-02 10:30] LABS: UR CREAT RANDOM 51.6 mg/dL (11-20)
[2020-01-02] MEDS ORDERED: COLCRYS PO SCH (11:30)
--- NOTE | 2020-01-02 11:55 | PROGRESS NOTE ---
DATE: 01/02/2020 INTERVAL HISTORY: No acute events overnight. Ms. Marx has been requiring intermittent haloperidol for episodes of agitation. In the morning time she was a little drowsy, lying down in the bed. She is complaining of Underwood catheter causing her discomfort. She denies any chest pain or shortness of breath at rest. VITALS: Temperature of 98.1 degrees, pulse 81, respiratory rate 18, blood pressure 140/70, saturating 95% on 4 L nasal cannula. PHYSICAL EXAMINATION: General: Not in acute distress. Oral cavity: Moist. Lungs: She has inspiratory crackles in right lung hussein. Otherwise, adequate air entry without any wheeze, rhonchi, crackles on the left lung hussein. Heart: S1, S2 normal. No murmur or gallop. Abdomen: Soft, nontender. Extremities: No lower extremity edema. : She has urine catheter. Neurologic: She is alert. She is answering most questions appropriately, but appears drowsy. LABS: Suggestive of resolution of leukocytosis. Hemoglobin of 10.3, platelet 288. Increasing creatinine to 2, blood glucose 186. Her fractional excretion of sodium is less than 1%. MICROBIOLOGY: No positive microbiological data. X-RAYS: Chest x-ray suggests she has improvement in the infiltrate in the right side of the lung. ASSESSMENT AND PLAN: 1. Acute hypoxic respiratory failure due to predominantly right lung multifocal pneumonia. Continue intravenous Zosyn. Follow up sputum culture results. Considering persistent infiltrate. I will add azithromycin for atypical coverage, though her leukocytosis has been improving. Follow up final sputum culture results. Continue oxygenation through nasal cannula. I encouraged her to come out of bed with physical therapy's help. Continue guaifenesin. 2. Acute kidney injury. The patient had been on intravenous vancomycin, which I stopped. Fraction excretion of sodium suggests less than 1%. I will give her intravenous fluids of 1 liter and follow up with basic metabolic panel tomorrow. I will continue Underwood catheter for close input and output monitoring, and will consider taking it out tomorrow based on kidney function. 3. History of psychotic mood disorders and seizures according to discharge summary in 2017. The patient was supposed to be on Keppra, buspirone, olanzapine and divalproex. However, not sure whether she has been taking these medications. I will keep her on Keppra and as-needed intravenous haloperidol. 4. Others. Continue atenolol and nisoldipine for essential hypertension, [place] for chronic pain, and sliding scale insulin for noninsulin-dependent diabetes mellitus. DISPOSITION: I will continue to monitor patient inside the hospital and physical therapy has been ordered. Plan of care has been discussed with the patient. Her questions have been satisfactorily answered. cc: Rashel Keane MD
[2020-01-02] MEDS: ZOSYN 2.25 GM in NS 50 ML IV SCH ×2 (13:10→21:46)
[2020-01-03] MEDS: ZOSYN 2.25 GM in NS 50 ML IV SCH ×3 (05:38→21:45)
[2020-01-03 06:28] LABS: CALCIUM 8.7 mg/dL (8.8-10.2); CREATININE 1.9 mg/dL (0.5-0.9); POTASSIUM 4.1 mmol/L (3.5-5.1)
[2020-01-03] MEDS: HUMULIN R SUBQ SCH ×4 (06:30→21:45)
[2020-01-03] MEDS: KEPPRA PO SCH ×2 (08:25→20:11)
[2020-01-03] MEDS: BIDEX PO SCH ×3 (08:27→16:47)
[2020-01-03] MEDS: ZITHROMAX PO SCH (08:27)
[2020-01-03] MEDS: TENORMIN PO SCH (08:28)
[2020-01-03] MEDS: SULAR PO SCH (08:28)
[2020-01-03] MEDS: NORCO-7.5 PO PRN ×3 (08:31→20:10)
[2020-01-03] MEDS: HALDOL IV PRN ×3 (08:32→16:45)
--- NOTE | 2020-01-03 10:39 | PROGRESS NOTE ---
DATE: 01/03/2020 HISTORY: A 69-year-old who was admitted on 12/28/2019. She came in with shortness of breath, not feeling well, history of hypertension, seizures, diabetes mellitus type 2 and hyperlipidemia. Then she went to [facility] complaining of shortness of breath and difficulty breathing, was evaluated there. Imaging done showed pneumonia. She was in respiratory distress. They put her on BiPAP and they sent her over here. ADMISSION DIAGNOSES: 1. Acute respiratory failure. 2. Pneumonia. 3. Hypertension. 4. Diabetes mellitus. SUBJECTIVE: She reports she is feeling better. OBJECTIVE: Vital signs: On exam today, temperature 98.2 degrees, pulse 70, respirations 18, blood pressure 113/48. HEENT: Pupils are equal and round. Neck: No distended neck veins. Lungs: Clear in all lung hussein. Cardiovascular: Regular rhythm and rate without murmur or S3. URINE OUTPUT: 5100 mL. IMAGING: Chest x-ray from the , mixed changes, multifocal somewhat nodular infiltrates throughout the right lung and at the left lower lung zone again identified and there had been some improvement in the right upper lung zone, but there is increased opacity in the left lower lung zone which may represent superimposed atelectasis. ASSESSMENT AND PLAN: 1. Acute hypoxemic respiratory failure due to bilateral multifocal pneumonia. Continue IV Zosyn. Repeat sputum cultures. Continue inhaled bronchodilators and supplementary O2 on nasal cannula, and added guaifenesin. 2. Acute kidney injury. This could be related to use of IV vancomycin, so stopped IV vancomycin and watch renal function. Urine output looks good. 3. History of psychotic mood disorder and seizures. According to discharge summary in 2017, the patient was supposed to be on Keppra, buspirone, olanzapine and divalproex; however, not entirely sure how she was taking these medications, so we kept her on Keppra. 4. Continue atenolol for essential hypertension, [place] for chronic pain. She still needs quite a bit of oxygen. Continue present measures. REVIEW OF LABS: From the , hemoglobin was 10, hematocrit 32. Electrolytes unremarkable. Creatinine 1.9; when she presented, it was 0.6 so appears to have some acute kidney injury. cc: Jersey Stein MD [facility]OSPITALSushil
[2020-01-03] MEDS: DUONEB (A & A) INH PRN (19:37)
[2020-01-04] MEDS: NORCO-7.5 PO PRN ×4 (01:19→21:33)
[2020-01-04] MEDS: ZOSYN 2.25 GM in NS 50 ML IV SCH ×3 (06:45→21:33)
[2020-01-04] MEDS: HUMULIN R SUBQ SCH ×4 (06:52→20:30)
[2020-01-04] MEDS: DUONEB (A & A) INH PRN ×4 (08:03→22:27)
[2020-01-04] MEDS: BIDEX PO SCH ×3 (08:54→16:22)
[2020-01-04] MEDS: SULAR PO SCH (08:54)
[2020-01-04] MEDS: KEPPRA PO SCH ×2 (08:54→20:30)
[2020-01-04] MEDS: ZITHROMAX PO SCH (08:54)
[2020-01-04] MEDS: TENORMIN PO SCH (08:55)
[2020-01-04] MEDS ORDERED: VALIUM PO PRN ×2 (09:52→10:45)
[2020-01-04] MEDS ORDERED: BUSPAR PO PRN (09:52)
--- NOTE | 2020-01-04 10:19 | PROGRESS NOTE ---
DATE: 01/04/2020 SUBJECTIVE: Ms Marx, she just wants to go home. She does not want to mess with her oxygen. She says that she is not going to rehab and her family wants her home. She appears to be breathing comfortably at this time. She states she has does not feel good and cannot get anybody to help her. OBJECTIVE: Vital signs: Temperature 97.6 degrees, pulse 77, respirations 14, blood pressure 175/82. Pupils are equal and round. Lungs are clear anterolateral and posterior. Cardiovascular: Regular rhythm and rate without murmur or S3. Abdomen is soft. Skin is warm and dry. URINE OUTPUT: 5400 mL. IMAGING: Chest x-ray 01/02/2020, multifocal, somewhat nodular infiltrates throughout the right lung and at the left lower lung zone and there has been some improvement in the right upper lung zone, but there is increased opacity in the left lower lung zone that may represent superimposed atelectasis. ASSESSMENT AND PLAN: 1. Acute hypoxemic respiratory failure due to bilateral multifocal pneumonia. Continue IV Zosyn and cultures, bronchodilators, supplemental O2. We were able to wean her O2 down to 2 L but she still requires 2 L. I think we need to wean her down some more or see if she is eligible for home oxygen. She is pretty insistent on going home. From my understanding, family would like her to go to rehab. I am not sure she is going to agree to that. 2. Acute kidney injury. We think that may be in part from the IV vancomycin. Her creatinine has come down to 1.9 so we need to continue those fluids. 3. History of psychotic mood disorder. Continue her current medication. 4. Essential hypertension. Blood pressure appears well controlled. REVIEW OF HER ORDERS: The patient is getting Keppra 750 mg p.o. b.i.d. and is on Zosyn 2.25 g IV q.8 hours, azithromycin 500 mg p.o. daily. Looking back at her home medicines, she is on buspirone 7.5 mg t.i.d. p.r.n. at home and she, of course, takes her Keppra 750 mg p.o. daily, and we will see if we can get her back on her BuSpar, and that may help. cc: Jersey Stein MD
[2020-01-04] MEDS: BUSPAR PO SCH ×2 (12:09→16:23)
[2020-01-05] MEDS: NORCO-7.5 PO PRN ×3 (03:18→16:34)
[2020-01-05] MEDS: DUONEB (A & A) INH PRN ×4 (03:47→16:05)
[2020-01-05] MEDS: ZOSYN 2.25 GM in NS 50 ML IV SCH ×2 (05:13→13:58)
[2020-01-05] MEDS: HUMULIN R SUBQ SCH ×3 (06:16→17:52)
[2020-01-05] MEDS: KEPPRA PO SCH (10:02)
[2020-01-05] MEDS: TENORMIN PO SCH (10:03)
[2020-01-05] MEDS: BUSPAR PO SCH ×2 (10:04→13:32)
[2020-01-05] MEDS: SULAR PO SCH (10:08)
[2020-01-05] MEDS: ZITHROMAX PO SCH (10:48)
[2020-01-05] MEDS: BIDEX PO SCH ×2 (10:48→13:33)
[2020-01-05 15:55] VITALS: BP 163/80
--- NOTE | 2020-01-05 16:08 | PROGRESS NOTE ---
DATE: 01/05/2020 SUBJECTIVE: Ms Marx has really refused her medicines. She has refused therapy. She has refused her oxygen. She is insistent she is going to go home. She wants us to call her ex- , call her daughter. We have made numerous attempts and I finally did get a hold of her ex- and he is he is not comfortable taking her home. He wants her to go to rehab. We recommend we get a hold of her daughter, but she is pretty insistent she wants to go home and has refused basically therapy. Her IV is infiltrated, so I am going to take the IV out. OBJECTIVE: Vital Signs: Temperature 98.9 degrees, pulse 86, respirations 16, blood pressure 160/68. HEENT: Pupils are equal and round. Lungs: Clear in all lung hussein. Cardiovascular: Regular rate without murmur or S3. Abdomen: Soft. Skin: Warm and dry. Neurologic: She still has some scattered wheezing. She is pretty weak, but she is walking around. LABORATORY: Her blood sugars were 202, 167 and 203. ASSESSMENT/PLAN: 1. Acute hypoxemic respiratory failure due to bilateral multifocal pneumonia. We had her on Zosyn. She has refused to get these. Her IV is infiltrated. Her last chest x-ray was on 01/02 and mixed changes, multifocal, somewhat nodular infiltrates throughout the right lung at that time and mainly in the left lower lung zones. She has had improvement in the right upper lung zone. Blood cultures with no growth from 12/27/2019, and other sputum culture from 01/01/2020; there were many epithelial cells, moderate white blood cells. I am not sure how good the sample was. 2. Acute kidney injury. We stopped the IV vancomycin. I think her kidney function is improving. Her creatinine is 1.9 on 01/03/2020. She has refused further sticks. 3. She has a psychotic mood disorder, which was on her past history. I do not know much about it. We are trying to keep her on her medicines. 4. Essential hypertension. I put her back on her Valium 10 mg at bedtime p.r.n. She is on Sular 17 mg p.o. daily. She takes hydrocodone 7.5 mg q.6 hours p.r.n. pain, BuSpar 7.5 mg t.i.d. She is getting azithromycin p.o. Her IV has come out. I will try and put her on Levaquin 750 mg p.o. daily. She is not allergic to penicillin, so I may try Augmentin 875 mg p.o. b.i.d. I am not sure what we are going to do about discharge planning. I do not know if she has a place to go. We have been unable to contact the daughter. Trolley Worker will help on this. cc: Jersey Stein MD
[2020-01-05] MEDS ORDERED: BUSPAR PO SCH (17:00)
[2020-01-05] MEDS ORDERED: AUGMENTIN PO SCH (21:00)
--- NOTE | 2020-01-06 16:41 | DISCHARGE SUMMARY ---
ADMISSION DATE: 12/28/2019 DISCHARGE DATE: 01/05/2020 PRIMARY CARE PHYSICIAN: Dr. Brady Felder HISTORY OF PRESENT ILLNESS: This is a 69-year-old who presented on 12/28/2019, shortness of breath, not feeling well. She has a history of hypertension, history of seizures, diabetes mellitus type 2, hyperlipidemia. Initially went to [facility] with complaints of shortness of breath and difficulty breathing. Patient was evaluated there. She had imaging done which showed suggested pneumonia. She was in respiratory distress. They put her on BiPAP and due to lack of ICU beds, was transferred to [facility] for further management. At time of examination, she had denied any headache, fever, chills, chest pain, or any weight changes but complained of shortness of breath. PAST MEDICAL HISTORY: Includes hypertension, seizure disorder, diabetes mellitus type 2, and hyperlipidemia. PAST SURGICAL HISTORY: Include shoulder surgery, bilateral knee surgery and hysterectomy. ALLERGIES: Codeine, meperidine, morphine, oxycodone. CURRENT MEDICATIONS: When she came in, atenolol 25 mg a day, BuSpar 15 mg daily, enalapril 2.5 mg a day, Keppra 250 mg p.o. b.i.d., metformin 500 mg b.i.d., pantoprazole 40 mg a day. Rosuvastatin 20 mg a day. ADMISSION DIAGNOSES: 1. Acute respiratory failure. 2. Pneumonia. 3. Hypertension. 4. Diabetes mellitus type 2. HOSPITAL COURSE: They put her in the ICU, had her on BiPAP and titrating her oxygen. We checked blood cultures and had her on empiric antibiotics, resumed her anti-hypertensive medications and put her on SLD's for DVT prophylaxis. Chest x-ray on 01/02/2020 had mixed changes, multifocal somewhat nodular infiltrates throughout the right lung and at the left lower lung zone were again identified and somewhat improved at the right upper lung zone but increased opacity in the left lower lobe which we thought was superimposed atelectasis. The patient clinically felt better and she was insisting on going home. I tried to contact her daughter but had difficulty. We did contact her ex- and he wanted us contact the daughter. I think they were hoping for her to pursue rehab. I think she is staying at her daughter's home. She says until she can get back on her feet. She refused the oxygen. She refused her breathing treatments. Her IV infiltrated. She had been refusing the antibiotics and was insistent she would go home and so the daughter arrived to take her. DISCHARGE INSTRUCTIONS: She will go home on her home medications. She is on Norvasc 10 mg a day, atenolol 50 mg a day, and BuSpar 7.5 mg t.i.d. p.r.n. She was taking diazepam 10 mg at bedtime, enalapril 20 mg b.i.d., vitamin D2 1250 mcg I think once a day. She was on hydrocodone 7.5-325 one 3 times a day p.r.n., Keppra 750 mg a day, metformin 1000 mg b.i.d., Protonix 40 mg a day, potassium chloride, which is Klor-Con 10 mEq daily and Crestor 20 mg a day. She did not want any prescriptions. cc: Jersey Stein MD
== END 2020-01-05 18:18 | disposition home health service (06) | DRG 189 ==
LOC: P.ED 21:53 → SUATTDRO 12-28 01:10 → ICU 12-28 01:10 → 2N 12-30 19:53 → 3N 01-04 16:51
PROVIDERS: ATTEND Emergency Medicine